=== PATIENT | male | born 1945 | race Caucasian/White ===

== ENCOUNTER 2016-08-08 10:24 | Day surgery (SDC) | payer MEDICARE, OTHER ==
[~2016-08-08] VITALS: Ht 182.9 cm; Wt 95.0 kg
--- NOTE | 2016-08-25 08:33 | OR ---
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 POSTOPERATIVE DIAGNOSIS: History of transitional cell carcinoma with abnormal right lateral bladder wall lesion and bladder neck lesion. PROCEDURE: Cystoscopy with transurethral resection of right lateral bladder wall lesion and bladder neck lesion. ANESTHESIA: General. INDICATION: The patient is a pleasant white male with history of papillary urothelial neoplasm of low-malignant potential. He has abnormal lesion appreciated on office cystoscopy along the right lateral bladder wall with some dystrophic calcification. Concern for underlying malignancy does exist. He presents today for excision. Risks and benefits have been discussed. Preoperative antibiotics given. The patient does consent to procedures. DESCRIPTION OF PROCEDURE: The patient taken was taken to OR #5, placed on the table in supine position. After adequate anesthesia, transferred to dorsal lithotomy position, prepped and draped in the usual fashion. A time-out was taken for patient name, date of , planned procedure, preoperative antibiotics, and allergies. A 26-Iraqi resector sheath, visual obturator and 12 degree lens advanced to the level of bladder. This was exchanged for the 30 degree lens, continuous flow sheath, and Olympus bipolar resecting loop. I did request muscle relaxation of this lesion right over the obturator nerve. Once relaxation was confirmed, we did go ahead and begin our resection. Still had a slight obturator reflex, but no concern for bladder perforation. This abnormal lesion was debrided off all its dystrophic calcification. The underlying abnormal mucosa was then resected in sequence working from the superior to the inferior aspect of the lesion. We were able to stay well lateral and slightly distal to the ureteral orifice. This went nicely. All bladder tissue was evacuated from the bladder and sent for pathological analysis. We did undertake a routine cystoscopy, we had excellent hemostasis. We did use coagulating current to thoroughly fulgurate the resection bed. Once I was satisfied with this, we did look around, no other additional tumors were noted aside from some papillary tissue which I did not appreciate on my office cystoscopy right at the bladder neck. I did go ahead and focally resect the bladder neck at the 6 o'clock position. This was done with a very short swipes given the patient has had previous radical prostatectomy. I did use some coagulating current focally to maintain hemostasis and this lesion was sent as a separate specimen marked bladder neck. At this point, I was satisfied with hemostasis, the bladder was removed. Given that I did resect ADMIT: 08/08/2016 RM/LOC: [facility] MR#: [id number] [address] [place] [id number] ANGY LOPEZ [address] [place] [address] Operative/Delivery Room Report SEX: M AGE: 71 : 1945 the bladder neck and there was some slight oozing. I did pass a 20-Iraqi 2- way Bolden catheter, 15 mL instilled in the Bolden balloon. With gravity drainage, the urinary effluent was clear. I will leave this in for a couple days, to tamponade any bleeding which may occur at the bladder neck. We will remove that in the office on . The patient was subsequently awoken from anesthesia, extubated uneventfully, and transferred to the recovery room in stable condition. DISPOSITION: The patient will be discharged home later on today. He will present for Bolden catheter removal on . I will see him back in 1 week for biopsy results. He is given instruction as far as Bolden catheter care. He was given a short prescription for Lortab 5/325 mg 1-2 every 4 to 6 hours as needed for pain dispense #15 and Cipro 500 mg 1 p.o. b.i.d. for the next 5 days. Pablo Brown MD/ jerod JOB #: [id number] CC: Pablo Brown, Attending Physician Catarino Hamm, Family Physician
[2016-11-20] MEDS ORDERED: CITRACAL D + H1 EACH PO (16:47)
[2016-11-20] MEDS ORDERED: ASPIR 8181 MG PO (16:47)
[2016-11-20] MEDS ORDERED: FISH OIL 1,0001 EACH PO (16:48)
[2016-11-20] MEDS ORDERED: SLO NIACIN DPS500 MG PO (17:06)
[2016-11-20] MEDS ORDERED: FOSAMAX70 MG PO (17:06)
[2016-11-20] MEDS ORDERED: THERA1 EACH PO (17:06)
[2016-11-20] MEDS ORDERED: FOLIC ACID0.8 M1 PO (17:06)
[2016-11-20] MEDS ORDERED: PRAVACHOL40 MG PO (17:07)
[2016-11-20] MEDS ORDERED: VITAMIN D-32000 UNI1 PO (17:07)
[2016-11-20] MEDS ORDERED: ASCORBIC ACID500 MG PO (17:07)
[2016-11-20] MEDS ORDERED: CIPRO DPS500 MG PO (17:08)
[2016-11-20] MEDS ORDERED: NORVASC5 MG PO (17:08)
== END 2016-08-08 16:44 | disposition home or self-care (01) ==
LOC: SSS 10:24
PROC: 0TTC8ZZ Resection of Bladder Neck, Via Natural or Artificial Opening Endoscopic (ICD-10-PCS; principal; 2016-08-08)
DX: N30.00 Acute cystitis without hematuria (principal); N30.20 Other chronic cystitis without hematuria; J44.9 Chronic obstructive pulmonary disease, unspecified; G47.30 Sleep apnea, unspecified; I10 Essential (primary) hypertension; E78.5 Hyperlipidemia, unspecified; M19.90 Unspecified osteoarthritis, unspecified site; Z85.51 Personal history of malignant neoplasm of bladder; Z87.891 Personal history of nicotine dependence; Z98.890 Other specified postprocedural states; Z85.46 Personal history of malignant neoplasm of prostate; Z79.899 Other long term (current) drug therapy